=== PATIENT | female | born 2005 | race Caucasian/White ===

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

== ENCOUNTER 2023-06-14 11:09 | Emergency (ER) | payer SELFPAY ==
[~2023-06-14] VITALS: Ht 157.4 cm; Wt 45.4 kg
[~2023-06-14 11:09] MED LIST changes: +DIFLUCAN150 MG PO
[2023-06-14 11:50] LABS: BILIRUBIN Negative (Negative); BLOOD Negative (Negative); CLARITY Cloudy (Clear); COLOR Yellow (Yellow); GLUCOSE Negative (Negative); KETONE 3+ (Negative); LEUKO ESTERASE Negative (Negative); NITRITE Negative (Negative); PH 5.5 (4.5-8.0); SPECIFIC GRAVITY >= 1.030 (1.001-1.030); UROBILINOGEN 0.2 E.U./dl (0.0-1.0)
[2023-06-14 12:01] LABS: BASO % 0.4 % (0.0-1.0); EOS # 0.1 10*3/uL (0.0-0.4); EOS % 0.9 % (1.0-4.0); HEMATOCRIT 39.3 % (37.0-47.0); LYMPH # 1.4 10*3/uL (1.3-4.4); LYMPH % 26.1 % (27.0-41.0); MEAN CELL VOLUME 94.2 fl (81.0-99.0); MEAN CORPUSCULAR HGB 30.7 pg (27.0-31.0); MEAN CORPUSCULAR HGB CONC 32.6 g/dl (33.0-37.0); MEAN PLATELET VOLUME 10.7 fl (9.6-12.3); MONO # 0.4 10*3/uL (0.1-1.0); MONO % 6.9 % (3.0-9.0); NEUT # 3.5 10*3/uL (2.3-7.9); NEUT % 65.5 % (47.0-73.0); PLATELET COUNT AUTOMATED 174 10*3/uL (130-400); RED BLOOD COUNT 4.17 10*6/uL (4.10-5.10); RED CELL DISTRI WIDTH 12.9 % (0-14.5); WHITE BLOOD COUNT 5.3 10*3/uL (4.8-10.8)
[2023-06-14 12:03] LABS: BACTERIA 3+
[2023-06-14 12:04] LABS: EPITHELIAL CELLS 21-30
[2023-06-14 12:23] LABS: ALKALINE PHOSPHATASE 51 U/L (46-116); BUN 5 mg/dl (9-23); CHLORIDE 109 mmol/L (98-107); POTASSIUM 3.5 mmol/L (3.4-5.1); SGPT/ALT 11 U/L (5-49)
[2023-06-14] MEDS ORDERED: MACROBID100 M1 PO (12:44)
== END 2023-06-14 12:47 | disposition home or self-care (01) ==
LOC: ED 11:09
PROVIDERS: Emergency Medicine; Nurse Practitioner
DX: O23.41 Unspecified infection of urinary tract in pregnancy, first trimester (principal); N39.0 Urinary tract infection, site not specified; R10.2 Pelvic and perineal pain; Z3A.01 Less than 8 weeks gestation of pregnancy; Z88.0 Allergy status to penicillin; Z88.7 Allergy status to serum and vaccine; Z88.8 Allergy status to other drugs, medicaments and biological substances

== ENCOUNTER 2023-12-16 15:04 | Emergency (ER) | payer MEDICAID ==
[~2023-12-16] VITALS: Ht 157.4 cm; Wt 61.2 kg
[2023-12-16] MEDS ORDERED: Bactroban Oint22 GM T (16:31)
== END 2023-12-16 16:52 | disposition home or self-care (01) ==
LOC: ED 15:04
DX: O26.893 Other specified pregnancy related conditions, third trimester (principal); L73.9 Follicular disorder, unspecified; Z88.0 Allergy status to penicillin; Z88.7 Allergy status to serum and vaccine; Z3A.30 30 weeks gestation of pregnancy

== ENCOUNTER 2024-01-16 12:27 | Emergency (ER) | payer MEDICAID ==
[~2024-01-16] VITALS: Ht 157.4 cm; Wt 65.8 kg
[~2024-01-16 12:27] MED LIST changes: +Bactroban Oint22 GM T
== END 2024-01-16 13:21 | disposition home or self-care (01) ==
LOC: ED 12:27
DX: O26.893 Other specified pregnancy related conditions, third trimester (principal); R10.9 Unspecified abdominal pain; M54.9 Dorsalgia, unspecified; Z88.0 Allergy status to penicillin; Z88.7 Allergy status to serum and vaccine; Z87.891 Personal history of nicotine dependence; Z3A.35 35 weeks gestation of pregnancy

== ENCOUNTER 2024-03-27 09:42 | Emergency (ER) | payer MEDICAID ==
[~2024-03-27] VITALS: Ht 157.4 cm; Wt 62.1 kg
[2024-03-27 10:11] LABS: BILIRUBIN Negative (Negative); BLOOD 3+ (Negative); CLARITY Turbid (Clear); COLOR Yellow (Yellow); GLUCOSE Negative (Negative); KETONE Negative (Negative); LEUKO ESTERASE 3+ (Negative); NITRITE Positive (Negative); UROBILINOGEN 0.2 E.U./dl (0.0-1.0)
[2024-03-27] MEDS ORDERED: CIPRO500 MG PO (10:11)
[2024-03-27] MEDS ORDERED: Ciprofloxacin Hydrochloride 500 MG TAB PO ONE (10:15)
[2024-03-27 10:40] LABS: BACTERIA 4+; RBC TNTC rbc/hpf (0-2); WBC TNTC wbc/hpf (0-5)
== END 2024-03-27 10:28 | disposition home or self-care (01) ==
LOC: ED 09:42
PROVIDERS: Emergency Medicine
DX: N39.0 Urinary tract infection, site not specified (principal); Z88.0 Allergy status to penicillin; Z88.7 Allergy status to serum and vaccine

== ENCOUNTER 2025-04-28 13:28 | Emergency (ER) | payer MEDICAID ==
[~2025-04-28] VITALS: Ht 157.4 cm; Wt 59.0 kg
[~2025-04-28 13:28] MED LIST changes: +CIPRO500 MG PO
[2025-04-28] MEDS ORDERED: ANTIFUNGAL30 GM TD (13:47)
[2025-04-28] MEDS ORDERED: KENALOG 0.1%80 GM T (13:47)
== END 2025-04-28 13:52 | disposition home or self-care (01) ==
LOC: ED 13:28
DX: R21 Rash and other nonspecific skin eruption (principal); Z88.0 Allergy status to penicillin; Z88.7 Allergy status to serum and vaccine